=== PATIENT | female | born 1975 | race Caucasian/White ===

== ENCOUNTER 2017-06-11 07:17 | Day surgery (SDC) | payer OTHER ==
[2017-06-08 11:35] LABS: Absolute Lymphocytes (CBC) 1.8 K/uL (0.7-4.9); Absolute Monocytes 0.5 K/uL (0.1-1.3); Absolute Neutrophil 6.5 K/uL (1.8-8.0); Basophils % 0.5 % (0-1.3); Eosinophils % 1.1 % (0-4.4); Hematocrit 39.2 % (36.0-45.0); Lymphocytes % 20.2 % (15.3-44.8); MCH 27.6 pg (27.0-35.0); MPV 7.7 fL (7.6-11.3); Monocytes % 5.8 % (3.3-12.3); RBC Red Blood Cell Count 4.62 M/uL (3.86-4.86)
[2017-06-08 12:04] LABS: BUN Blood Urea Nitrogen 14 mg/dL (6-20); Bicarbonate 27 mEq/L (21-31); Glomerular Filtration Rate > 90 mL/min (=/>90); Glucose Level 89 mg/dL (65-120); Potassium 4.3 mEq/L (3.6-5.0); Sodium Level 138 mEq/L (135-145)
--- NOTE | 2017-06-08 12:16 | RAD REPORT ---
EXAM DESCRIPTION: RADOP - Outpt Chest Pa/Lat (2 Views) - 06/08/2017 11:38 am CLINICAL HISTORY: Hypertension COMPARISON: None. FINDINGS: The lungs are clear. The heart is normal in size. No displaced fractures. IMPRESSION: No acute or concerning finding suspected.
[2017-06-08 12:30] LABS: Albumin 4.3 g/dL (3.2-5.5); Bilirubin Direct 0.1 mg/dL (0-0.2); Bilirubin Total 0.7 mg/dL (0.3-1.2)
--- NOTE | 2017-06-08 12:39 | EKG ---
Test Date: 2017-06-08 Test Time: 11:43:44 Media/Instructional Designer: ROSIBEL MEASUREMENT RESULTS: Intervals: Rate: 86 WI: 132 QRSD: 80 QT: 386 QTc: 461 [place]: P: 38 WI: 132 QRS: 66 T: 53 INTERPRETIVE STATEMENTS: Normal sinus rhythm Normal ECG No previous ECG available for comparison Electronically Signed On 06-08-17 12:39:22 CDT by Trey Lei
--- OUTSIDE RECORDS SUMMARY | 2017-06-11 07:20 | XMS REPORT | Clinical Summary ---
:1975 Author Organization [facility] Address [address] [place] [address] Care Team Providers Name Role Phone Tamera Ayoub MD Primary Care Provider Allergies Active Allergy Reactions Severity Noted Date Comments Adhesive Tape-Silicones 12/24/2015 Latex 12/24/2015 Current Medications Prescription Sig. Disp. Refills Start Date End Date Status dexlansoprazole take 1 capsule Active (DEXILANT) 60 mg daily capsule desipramine (NORPRAMIN) Take 50 mg by Active 50 MG tablet mouth. ALPRAZolam (XANAX) 0.25 Take 0.25 mg Active MG tablet by mouth. amLODIPine (NORVASC) 10 Take 10 mg by Active mg tablet mouth daily. predniSONE (DELTASONE) Take one 21 tablet 0 10/09/2016 10/23/2016 20 mg tablet tablet BID for one week, then one tablet QAM for one week Active Problems No known active problems Encounters Date Type Specialty Care Team Description 10/09/2016 Office Visit Sports Medicine Yonas Lisa, Lateral epicondylitis of right elbow (Primary Dx); Right elbow pain 09/19/2016 Office Visit Sports Medicine Yonas Lisa, Right elbow pain (Primary MD Dx) after 06/10/2016 Family History Relation Name Status Comments Father Mother Alive Social History Tobacco Use Types Packs/Day Years Used Date Current Every Day Smoker Cigarettes 0.5 Smokeless Tobacco: Never Used Alcohol Use Drinks/Week oz/Week Comments Yes Sex Assigned at Date Recorded Not on file Last Filed Vital Signs Not on file Plan of Treatment Health Maintenance Due Date Last Done Comments PAP SMEAR 07/28/1995 INFLUENZA VACCINE 10/24/2016 Results XR Elbow 3+ Vw Right (10/09/2016 10:54 AM)Only the most recent of2 resultswithin the time period is included. Specimen Performing Laboratory [facility] [address] [place] [address] Impressions No fracture. Narrative FINDINGS: 3 views demonstrate no fracture, dislocation, or elbow effusion. after 06/10/2016 Insurance Payer Benefit Plan / Group Subscriber ID Type Phone Address [facility] CHOICE/CHOICE + xxxxxxxxx HMO/PPO
[2017-06-11] MEDS ORDERED: Ringers Lactate 1,000 ML IV ONE ×2 (08:21→11:24)
[2017-06-11] MEDS ORDERED: CEFOXITIN/SWI 1gm 1 GM/10 ML SYR ONE (08:21)
[2017-06-11] MEDS ORDERED: PROPOFOL 200 MG/20 ML VIAL IV ONE (09:15)
[2017-06-11] MEDS ORDERED: ONDANSETRON 4 MG/2 ML VIAL ONE (09:16)
[2017-06-11] MEDS ORDERED: MIDAZOLAM HCL 2 MG/2 ML INJ ONE (09:16)
[2017-06-11] MEDS ORDERED: LIDOCAINE 2% MPF 5 ML VIAL ONE (09:16)
[2017-06-11] MEDS ORDERED: ROCURONIUM 50 MG/5 ML VIAL IV ONE (09:17)
[2017-06-11] MEDS ORDERED: FENTANYL CITR 100 MCG/2 ML ONE (09:17)
[2017-06-11] MEDS ORDERED: SCOPOLAMINE HYDROBROMIDE PATCH TD ONE (09:25)
[2017-06-11] MEDS ORDERED: DEXAMETHASONE 10 MG/ML VIAL ONE (09:55)
--- NOTE | 2017-06-11 10:25 | P.BOP ---
Preoperative diagnosis: cholecystitis, symptomatic cholelithiasis Postoperative diagnosis: same, incarcerated umbilical hernia Primary procedure: 1. Laparoscopic cholecystectomy Secondary procedure: 2. REpair of incarcerated umbilical hernia Master Sheet Clerk: Arabella Antunez) Estimated blood loss: <10cc Specimen: gb, hernia sac Findings: as above Anesthesia: General Transferred to: Recovery Room Condition: Good
[2017-06-11] MEDS ORDERED: NEOSTIGMINE 1 MG/ML -5 ML SYRINGE ONE (10:30)
[2017-06-11] MEDS ORDERED: GLYCOPYRROLATE 0.2 MG/ML SYR ONE (10:30)
[2017-06-11] MEDS ORDERED: Mastisol Adhesive Liq ONE (10:32)
[2017-06-11] MEDS: MEPERIDINE HCL 50 MG/ML AMP ONE ×2 (10:35→10:40)
[2017-06-11] MEDS ORDERED: PROMETHAZINE 25 MG/ML VIAL ONE (10:53)
[2017-06-11] MEDS ORDERED: MEPERIDINE HCL 25 MG/0.5 ML ONE ×2 (11:08→11:22)
[2017-06-11] MEDS ORDERED: KETOROLAC 30 MG/ML INJ ONE (12:09)
[2017-06-11] MEDS ORDERED: HYDROCODONE/APAP 10/325 TAB ONE (12:10)
--- NOTE | 2017-06-11 12:37 | OP ---
Date of Procedure: 06/11/2017 Surgeon: Fco Rico MD Recovery Coordinator: BOB Ahuja. Preoperative Diagnosis: Acute cholecystitis and symptomatic cholelithiasis. Postoperative Diagnoses: Acute cholecystitis and symptomatic cholelithiasis plus incarcerated umbili radha hernia. Procedures: 1.Laparoscopic cholecystectomy. 2.Repair of an incarcerated umbilical hernia. Estimated Blood Loss: Less than 10 cc. Specimen: Gallbladder and hernia sac. Anesthesia: General plus local. Indications: This is the case of a female, who comes to us with above diagnosis. Fully explained th e benefits, alternatives, and risks of laparoscopic, possible open, cholecystectomy which include, bu t not limited to infection, bleeding, damage to adjacent structures, anesthesia complication, choledo cholithiasis, bile leak, pancreatitis, IA, and even . She also understands this may not relieve any symptoms. She might need more than one surgical intervention. She understood. Signed the cons ent. Procedure In Detail: The patient was brought to the operating room, placed in supine position. Anes thesia was done without complication. Abdominal area was prepped and draped in sterile fashion. Mar molly 0.5% was injected for local anesthetic, followed by sharp incision of the skin in the infraumbi lical region. Immediately, we noticed the patient to have an incarcerated umbilical hernia. So, we proceeded to carefully delineate that hernia sac. I opened the hernia sac. Noticed a small amount o f incarcerated omentum, still viable, so it was reduced back into the abdominal cavity. Adhesions we re removed from the hernia sac. The hernia sac was removed. The fascial edges openings were extende d and cleaned. Vicryl #1 placed inside the fascia. Kostas trocar was carefully introduced. No blee ding was obtained. I placed 3 more trocars in the right upper quadrant, 5 mm each one of them, under direct visualization. The grasper was placed in the fundus of the gallbladder and another grasper i n the infundibulum, retracted the gallbladder in the inferolateral fashion exposing the triangle of C alot. The cystic duct and cystic artery were clearly isolated free circumferentially and a connectio n between those and the gallbladder was clearly identified. I proceeded to ligate those by using at least 3 clips proximal, 1 clip distal. The same was done with the cystic artery. Hepatic artery and common bile duct were identified and protected at all times. The gallbladder was removed from liver using Bovie cauterizer and removed from abdominal cavity using EndoCatch through the umbilical incis ion. The gallbladder was inspected. A large gallstone was present in that area but it disintegrated . Specimen sent to the pathologist. We paid our attention once again to the area of the gallbladder and looked of the gallbladder fossa. It looked intact. Clips looked intact with no bile leak. No bleeding. At that moment, I proceeded to remove the trocars under direct vision. Deflated pneumoperitoneum. C losed the fascia with #1 Vicryl. Irrigated subcutaneous tissue and closed that with 3-0 chromic and skin in a 3-0 chromic in subcuticular fashion and Steri-Strips on top. Sponge count and instrument c ounts were correct. The patient tolerated the procedure well. The patient was sent to recovery in s table condition. DISCHARGE SUMMARY Diagnoses: Acute cholecystitis and symptomatic cholelithiasis and also incarcerated umbilical hernia . Procedure: Laparoscopic cholecystectomy with repair of incarcerated umbilical hernia. Disposition: Home. Activity: As tolerated. No heavy lifting. Followup: Follow up in my office in 1 week. Call for appointment at [phone]. Discharge Instructions: Keep area dry for 48 hours, then may shower. Keep Steri-Strips intact. Medications: Include Vicodin q.4 hours p.r.n. pain and Augmentin 875 p.o. q.12. GLADYS/MANISH Voice ID: [id number] Report ID: [id number]
== END 2017-06-11 13:05 | disposition home or self-care (01) ==
LOC: OR 07:17
PROVIDERS: ATTEND Surgery
PROC: 0WQF0ZZ Repair Abdominal Wall, Open Approach (ICD-10-PCS; 2017-06-11)
PROC: 0FT44ZZ Resection of Gallbladder, Percutaneous Endoscopic Approach (ICD-10-PCS; principal; 2017-06-11 09:00)
DX: K80.12 Calculus of gallbladder with acute and chronic cholecystitis without obstruction (principal); K42.0 Umbilical hernia with obstruction, without gangrene; I10 Essential (primary) hypertension; F17.200 Nicotine dependence, unspecified, uncomplicated; Z88.7 Allergy status to serum and vaccine; Z80.1 Family history of malignant neoplasm of trachea, bronchus and lung; Z82.49 Family history of ischemic heart disease and other diseases of the circulatory system
CPT/HCPCS: 36415; 71046; 80048; 80076; 82150; 83690; 85025; 88302; 88304; 93005; J1100; J2175; J2250; J2405; J2550; J2710; J3010